=== PATIENT | female | born 1960 | race Two or more races ===

== ENCOUNTER 2025-03-04 07:03 | Outpatient (CLI) | payer OTHER | END 2025-03-04 07:16 | disposition home or self-care (01) | LOC: TOM 07:03 | PROVIDERS: ATTEND Surgery | DX: E21.0 Primary hyperparathyroidism (principal) | CPT/HCPCS: 70492; Q9965 ==

== ENCOUNTER 2025-06-02 10:30 | Inpatient (IN) | payer OTHER ==
[~2025-06-02] VITALS: Ht 157.5 cm; Wt 70.8 kg
[2025-06-02 12:20] LABS: BASO % 0.6 % (0.1-1.2); EOS # 0.21 (0.04-0.54); EOS % 3.3 % (0.7-7.0); LYMPH # 2.13 (1.18-3.74); LYMPH % 33.5 % (19.3-53.1); MEAN PLATELET VOLUME 9.50 fl (9.4-12.4); MONO # 0.38 (0.24-0.82); MONO % 6.0 % (4.7-12.5); NEUT # 3.57 (1.56-6.13); NEUT % 56.3 % (34.0-71.1); RED CELL DISTRIBUTION WIDTH 13.2 % (11.6-14.4)
[2025-06-02 12:34] LABS: URINE APPEARANCE Clear; URINE BILIRRUBIN Negative (NEGATIVE); URINE BLOOD Negative; URINE COLOR Yellow; URINE GLUCOSE Negative (NEGATIVE); URINE KETONE Negative (NEGATIVE); URINE LEUKOCYTE Trace; URINE NITRATE Negative; URINE PROTEIN Negative (NEGATIVE); URINE UROBILINOGEN 0.2 E.U./dl
[2025-06-02 12:39] LABS: URINE BACTERIA 239.9 uL (0.0-1933); URINE EPITHELIAL CELLS 12.9 uL (0.0-38.8); URINE RBC 8.3 uL (0.0-20.8); URINE WBC 12.7 uL (0.0-23.2)
[2025-06-02 12:44] LABS: URINE CAST 0.14 uL (0.0-1.40)
[2025-06-02] MEDS ORDERED: IRBESARTAN-HCT1 EACH PO (12:47)
[2025-06-02] MEDS ORDERED: AMLODIPINE BESYL5 MG PO (12:47)
[2025-06-02] MEDS ORDERED: LEVO-T50 MCG PO (12:47)
[2025-06-02 12:48] VITALS: BP 148/95
[2025-06-02 12:49] LABS: INR 1.03
[2025-06-02 13:08] LABS: ALT/SGPT 28.0 U/L (12-78); AST/SGOT 17.0 U/L (15-37); BILIRUBIN TOTAL 0.61 mg/dL (0.3-1.2); BUN CREA RATIO 28.0 (7.0-25.0); CREATININE SERUM 0.58 mg/dL (0.55-1.02); GFR 105.0; GLOBULINA 3.3 G/DL (2.4-3.5); GLUCOSE FASTING 94.0 mg/dL (65-100); OSMOLALITY SERUM 290.0 MOSM/KG (275-295)
[2025-06-09] MEDS ORDERED: DEXAMETHASONE SODIUM PHOSPHATE 4 MG/ML VIAL ONE (10:23)
[2025-06-09] MEDS ORDERED: ONDANSETRON HCL 2 MG/ML VIAL IV PRN (14:30)
[2025-06-09] MEDS ORDERED: ENALAPRILAT DIHYDRATE 1.25 MG/ML VIAL IV PRN (14:30)
[2025-06-09] MEDS ORDERED: MAG HYDROX/ALUMINUM HYD/SIMETH 30 ML BLIST.PACK PO ONE (16:43)
[2025-06-09] MEDS ORDERED: TRAMADOL HCL 50 MG TABLET PO SCH (17:00)
[2025-06-09] MEDS ORDERED: ACETAMINOPHEN 500 MG GEL..CAP PO SCH (17:00)
[2025-06-09] MEDS ORDERED: LIDOCAINE HCL 30 ML,MAG HYDROX/ALUMINUM HYD/SIMETH 30 ML,DIPHENHYDRAMINE HCL 75 MG MM SCH (17:00)
[2025-06-09] MEDS ORDERED: CYCLOBENZAPRINE HCL 5 MG TABLET PO SCH (17:00)
[2025-06-09] MEDS ORDERED: PANTOPRAZOLE SODIUM 40 MG/VIAL VIAL IV PUSH SCH (21:00)
[2025-06-10 01:37] VITALS: BP 105/63; O2SAT 95
[2025-06-10] MEDS ORDERED: MAG HYDROX/ALUMINUM HYD/SIMETH 30 ML BLIST.PACK PO ONE (07:43)
[2025-06-10] MEDS ORDERED: AMLODIPINE BESYLATE 5 MG TABLET PO SCH (09:00)
[2025-06-10] MEDS ORDERED: IRBESARTAN 150 MG TABLET PO SCH (09:00)
[2025-06-10] MEDS ORDERED: HYDROCHLOROTHIAZIDE 12.5 MG CAPSULE PO SCH (09:00)
[2025-06-10 14:09] VITALS: BP 116/97; O2SAT 94
[2025-06-11] MEDS ORDERED: LEVOTHYROXINE SODIUM 50 MCG TABLET PO SCH (06:00)
== END 2025-06-10 15:32 | disposition home or self-care (01) | DRG 627 ==
LOC: O/R 06-09 07:00 → SURG 06-09 07:00 → SURH 06-09 09:30 → SURG 06-09 15:59
PROVIDERS: ADMIT Surgery; ATTEND Surgery
PROC: 0GBM0ZZ Excision of Left Superior Parathyroid Gland, Open Approach (ICD-10-PCS; 2025-06-09)
PROC: 0GTG0ZZ Resection of Left Thyroid Gland Lobe, Open Approach (ICD-10-PCS; principal; 2025-06-09 09:30)
DX: C73 Malignant neoplasm of thyroid gland (principal); D35.1 Benign neoplasm of parathyroid gland